=== PATIENT | male | born 1970 | race Caucasian/White ===

== ENCOUNTER 2018-02-10 12:17 | Emergency (ER) ==
[2018-02-10] MEDS ORDERED: GEODON IM STA ×3 (12:23→12:58)
[2018-02-10] MEDS ORDERED: ATIVAN IM STA (12:23)
[2018-02-10 12:50] VITALS: BP 000/00; TEMP 97.8; BMI 33.0
[2018-02-10] MEDS ORDERED: HALDOL IM STA (12:59)
[2018-02-10] MEDS ORDERED: ATIVAN IVP STA (13:00)
--- NOTE | 2018-02-10 15:07 | CT ---
EXAM: CT of the head without contrast History: Confusion. Comparison: Head CT 08/23/2011 Technique: Multiplanar CT images through the head were obtained without the administration of IV con trast Findings: 2.2 cm new due to tension cyst or polyp within the right maxillary sinus. Mastoid air cells are clear in general. No acute calvarial abnormalities. Intracranially the ventricular and cisternal spaces are normal in size, shape and configuration for a patient of this age. No dominant mass or midline shift. No hydrocephalous. No acute intracranial hemorrhage or abnormal extraaxial fluid collections. Impression: 1. No acute intracranial process. 2. Right maxillary sinus mucous retention cyst or polyp.
--- NOTE | 2018-02-10 19:03 | ED.PDOC ---
General Stated Complaint: agitated /hallucination Time Seen by Physician: 12:19 Mode of Arrival: Walk-In Information Source: Police Exam Limitations: Clinical condition (confused) Nursing and Triage Documentation Reviewed and Agree: Yes Reviewed sepsis parameters & appropriate labs ordered?: Yes System Inflammatory Response Syndrome: Not Applicable System Inflammatory Response Syndrome: Not Applicable <ANGELITO RINALDI - Last Filed: 02/10/18 19:01> <CORNELIO ALVARADO - Last Filed: 02/11/18 01:57> ED Provider: Dr. CORNELIO ALVARADO Chief Complaint: Behavioral Complaint Sepsis Protocol: For patient's 13 years and over: Temp is 96.8 and below OR 101 and greater Pulse >90 BPM Resp >20/minute Acutely Altered Mental Status Are patient's symptoms suggestive of a new infection, such as: -Pneumonia -Skin, Soft Tissue -Endocarditis -UTI -Bone, Joint Infection -Implantable Device -Acute Abdominal Infection -Wound Infection -Meningitis -Blood Stream Catheter Infection -Unknown Psychological Complaint Exam - Psychiatric Complaint/Exam Patient Complains Of: Present: Other (cigar pack[facility] seeing tanner ) Onset/Duration: today Symptoms Are: Still present Timing: Constant (until medicated) Initial Severity: Severe Current Severity: None Character: Present: Fearful, Anxious, Angry, Frustrated Aggravating: Reports: None (unknown) Associated Signs And Symptoms: Reports: Hostile, Confused, Hallucinating, Paranoid behavior Completed Suicide Risk Factors: Male, Patient Accompanied By: Police Social Withdrawal Present: No (unknown) Social Isolation Present: No (unknown) Prior Suicide Attempt: No (unknown) Injury From Prior Suicide Attempt: No (unknwon) Patient Uncooperative For Exam: No Mood: Present: Hallucinating, Agitated, Anxious Thought Process: Present: Illogical, Flight of ideas Insight: Present: Poor Memory: Impaired Judgement: Impaired Danger To Others: Yes Patient Medically Stable For: Psych evaluation Differential Diagnoses: Acute Psychosis <GENTRYANGELITO - Last Filed: 02/10/18 19:01> Review of Systems - Review Of Systems Constitutional: Reports: No symptoms Eyes: Reports: No symptoms Ears, Nose, Mouth, Throat: Reports: No symptoms Respiratory: Reports: No symptoms Cardiac: Reports: No symptoms GI: Reports: No symptoms : Reports: No symptoms Musculoskeletal: Reports: No symptoms Skin: Reports: No symptoms Neurological: Reports: Anxiety, Cognitive dysfunction Endocrine: Reports: No symptoms Hematologic/Lymphatic: Reports: No symptoms All Other Systems: Reviewed and Negative <ANGELITO RINALDI - Last Filed: 02/10/18 19:01> Past Medical History - Past Medical History Previously Healthy: Yes Endocrine: Reports: Unknown Cardiovascular: Reports: None Respiratory: Reports: None Hematological: Reports: None Gastrointestinal: Reports: None Genitourinary: Reports: None Neuro/Psych: Reports: Anxiety, Depression, Schizophrenia Musculoskeletal: Reports: None Cancer: Reports: None Other Pertinent Past Medical History: JOINT PAINS,ANXIETY,DEPRESSION, SCHIZOPHENIA - Surgical History General Surgical History: Reports: Unknown - Family History Family History: Reports: Hypertension (mother), Other (sister cardiac surgery( Downs'),father age 73"chele causes") - Social History Smoking Status: Never smoker Hx Substance Use: No (marijuana) Alcohol Screening: Occasionally - Immunizations Tetanus Shot up to Date: No <GENTRYANGELITO Last Filed: 02/10/18 19:01> Physical Exam - Physical Exam Appearance: Well-appearing, No pain distress, Well-nourished Eyes: DENIA, EOMI, Conjunctiva clear ENT: Ears normal, Nose normal, Oropharynx normal Respiratory: Airway patent, Breath sounds clear, Breath sounds equal, Respirations nonlabored Cardiovascular: RRR, Pulses normal, No rub, No murmur GI/: Soft, Nontender, No masses, Bowel sounds normal, No Organomegaly Musculoskeletal: Normal strength, ROM intact, No edema, No calf tenderness Skin: Warm, Dry, Normal color Neurological: Sensation intact, Motor intact, Reflexes intact, Cranial nerves intact, Alert, Oriented Psychiatric: Affect appropriate, Mood appropriate <ANGELITO RINALDI - Last Filed: 02/10/18 19:01> Re-Evaluation - Re-Evaluation Time of Re-Evaluation: 01:52 Status: Improved <CORNELIO ALVARADO - Last Filed: 02/11/18 01:57> Critical Care Note - Critical Care Note Total Time (mins): 0 <ANGELITO RINALDI - Last Filed: 02/10/18 19:01> - Critical Care Note Total Time (mins): 30 <CORNELIO ALVARADO - Last Filed: 02/11/18 01:57> Course - Course Hematology/Chemistry: 02/10/18 12:41 02/10/18 12:41 <ANGELITO RINALDI - Last Filed: 02/10/18 19:01> - Course Hematology/Chemistry: 02/10/18 22:43 02/10/18 22:43 <CORNELIO ALVARADO - Last Filed: 02/11/18 01:57> - Course Orders, Labs, Meds: Lab Review 02/10/18 02/10/18 02/10/18 12:41 12:41 22:25 WBC 18.72 H RBC 5.24 Hgb 15.3 Hct 45.0 MCV 85.9 MCH 29.2 MCHC 34.0 RDW Coeff of Angelica 12.9 Plt Count 380 Immature Gran % (Auto) 0.3 Neut % (Auto) 67.2 Lymph % (Auto) 22.2 [place] % (Auto) 9.9 Eos % (Auto) 0.1 Baso % (Auto) 0.3 Immature Gran # (Auto) 0.1 Neut # (Auto) 12.6 H Lymph # (Auto) 4.2 H [place] # (Auto) 1.9 Eos # (Auto) 0.0 Baso # (Auto) 0.1 Sodium 142 Potassium 3.4 L Chloride 104 Carbon Dioxide 18 L Anion Gap 23.4 BUN 15 Creatinine 1.34 H Estimated GFR (MDRD) 57.00 BUN/Creatinine Ratio 11.19 Glucose 150 H Calcium 9.7 Total Bilirubin 1.5 H AST 75 H ALT 37 Alkaline Phosphatase 76 Total Protein 8.0 Albumin 4.3 Globulin 3.7 Albumin/Globulin Ratio 1.16 Urine Color Urine Clarity Urine pH Ur Specific [place] Urine Protein Urine Glucose (UA) Urine Ketones Urine Blood Urine Nitrite Urine Bilirubin Urine Urobilinogen Ur Leukocyte Esterase Urine Microscopic RBC Urine Microscopic WBC Ur Squamous Epith Cells Hyaline Casts Urine Mucus Salicylate Level mg/dL < 5.0 Urine Opiates Screen Negative Ur Oxycodone Screen Negative Urine Methadone Screen Negative Ur Propoxyphene Screen Negative Acetaminophen < 3 L Ur Barbiturates Screen Negative U Tricyclic Antidepress Negative Ur Phencyclidine Scrn Negative Ur Amphetamine Screen Negative U Methamphetamines Scrn Negative U Benzodiazepines Scrn Positive Urine Cocaine Screen Negative U Cannabinoids Screen Positive Plasma/Serum Alcohol < 10.0 02/10/18 02/10/18 02/10/18 22:25 22:43 22:43 WBC 12.81 H D RBC 4.57 L Hgb 13.5 L Hct 39.3 L MCV 86.0 MCH 29.5 MCHC 34.4 RDW Coeff of Angelica 12.9 Plt Count 250 D Immature Gran % (Auto) 0.4 Neut % (Auto) 62.6 Lymph % (Auto) 24.5 [place] % (Auto) 12.1 H Eos % (Auto) 0.2 Baso % (Auto) 0.2 Immature Gran # (Auto) 0.1 Neut # (Auto) 8.0 H Lymph # (Auto) 3.1 [place] # (Auto) 1.6 Eos # (Auto) 0.0 Baso # (Auto) 0.0 Sodium 140 Potassium 3.5 Chloride 112 H Carbon Dioxide 17 L Anion Gap 14.5 BUN 15 Creatinine 0.89 Estimated GFR (MDRD) 92.00 BUN/Creatinine Ratio 16.85 Glucose 108 H Calcium 7.9 L Total Bilirubin 1.0 AST 65 H ALT 29 Alkaline Phosphatase 58 Total Protein 6.4 Albumin 3.3 L Globulin 3.1 Albumin/Globulin Ratio 1.06 Urine Color Yellow Urine Clarity Clear Urine pH 5.5 Ur Specific [place] >=1.030 Urine Protein 1+ Urine Glucose (UA) Negative Urine Ketones Trace Urine Blood Negative Urine Nitrite Negative Urine Bilirubin 1+ Urine Urobilinogen 1.0 Ur Leukocyte Esterase Negative Urine Microscopic RBC 0-2 Urine Microscopic WBC 0-2 Ur Squamous Epith Cells Not Reportable Hyaline Casts 5-10 Urine Mucus 1+ Salicylate Level mg/dL Urine Opiates Screen Ur Oxycodone Screen Urine Methadone Screen Ur Propoxyphene Screen Acetaminophen Ur Barbiturates Screen U Tricyclic Antidepress Ur Phencyclidine Scrn Ur Amphetamine Screen U Methamphetamines Scrn U Benzodiazepines Scrn Urine Cocaine Screen U Cannabinoids Screen Plasma/Serum Alcohol Orders Category Date Time Status EKG-(ED ONLY) Stat CARDIO 02/10/18 12:50 Completed RESTRAINT CARE Q30MIN Q30MIN CARE 02/10/18 13:03 Active ED [place] APPLIED ONCE EMERGENCY 02/10/18 12:50 Active Restraints [ED RESTRAINTS] .ONCE EMERGENCY 02/10/18 12:47 Active Restraints [ED RESTRAINTS] .ONCE EMERGENCY 02/10/18 22:36 Active ACETAMINOPHEN Stat LAB 02/10/18 12:41 Completed BLOOD ALCOHOL Stat LAB 02/10/18 12:41 Completed CBC W/ AUTO DIFF Stat LAB 02/10/18 12:41 Completed CBC W/ AUTO DIFF Stat LAB 02/10/18 22:43 Completed CMP [COMPREHENSIVE METABOLIC PANEL] Stat LAB 02/10/18 22:43 Completed COMPREHENSIVE METABOLIC PANEL Stat LAB 02/10/18 12:41 Completed DRUG SCREEN, URINE, RAPID Stat LAB 02/10/18 22:25 Completed SALICYLATE Stat LAB 02/10/18 12:41 Completed URINALYSIS C & S IF INDICATED Stat LAB 02/10/18 22:25 Completed Haloperidol Lactate Inj [Haldol] MEDS 02/10/18 12:59 Discontinued 5 mg IM ONCE STA Lorazepam [Ativan] MEDS 02/10/18 13:00 Discontinued 2 mg IVP ONCE STA Sodium Chloride 0.9% [Sodium Chloride] 1,000 ml MEDS 02/10/18 19:43 Discontinued IV BOLUS Sodium Chloride 0.9% [Sodium Chloride] 1,000 ml MEDS 02/10/18 19:44 Discontinued IV BOLUS Sodium Chloride 0.9% [Sodium Chloride] 1,000 ml MEDS 02/10/18 21:08 Discontinued IV BOLUS Ziprasidone Mesylate [Geodon] MEDS 02/10/18 12:49 Discontinued 10 mg IM ONCE STA Ziprasidone Mesylate [Geodon] MEDS 02/10/18 12:58 Discontinued 10 mg IM ONCE STA Ziprasidone Mesylate [Geodon] MEDS 02/11/18 01:09 Discontinued 5 mg IM ONCE STA CT HEAD W/O CONTRAST Stat RADS 02/10/18 14:13 Completed Medications Discontinued Medications Generic Name Dose Route Start Last Admin Trade Name Freq PRN Reason Stop Dose Admin Haloperidol Lactate 5 mg 02/10/18 12:59 02/10/18 13:08 Haldol IM 02/10/18 13:00 5 mg ONCE STA Administration Sodium Chloride 1,000 mls @ 1,000 mls/hr 02/10/18 19:43 02/10/18 19:45 Sodium Chloride IV 02/10/18 20:42 1,000 mls/hr BOLUS STA Administration Sodium Chloride 1,000 mls @ 1,000 mls/hr 02/10/18 19:44 02/10/18 20:40 Sodium Chloride IV 02/10/18 20:43 1,000 mls/hr BOLUS STA Administration Sodium Chloride 1,000 mls @ 1,000 mls/hr 02/10/18 21:08 02/10/18 21:27 Sodium Chloride IV 02/10/18 22:07 1,000 mls/hr BOLUS STA Administration Lorazepam 2 mg 02/10/18 13:00 02/10/18 13:05 Ativan IVP 02/10/18 13:01 2 mg ONCE STA Administration Ziprasidone 10 mg 02/10/18 12:49 02/10/18 13:00 Geodon IM 02/10/18 12:50 10 mg ONCE STA Administration Ziprasidone 10 mg 02/10/18 12:58 02/10/18 13:15 Geodon IM 02/10/18 12:59 10 mg ONCE STA Administration Ziprasidone 5 mg 02/11/18 01:09 02/11/18 01:29 Geodon IM 02/11/18 01:10 5 mg ONCE STA Administration Vital Signs: Temp Pulse Resp BP Pulse Ox 02/10/18 12:18 97.8 F 166 H 22 000/00 L 100 Departure - Departure Pt referred to PMD for follow-up: Yes IPMP verified?: No <ANGELITO RINALDI - Last Filed: 02/10/18 19:01> - Departure Time of Disposition: 01:53 <CORNELIO ALVARADO - Last Filed: 02/11/18 01:57> - Departure Disposition: HOME SELF-CARE Discharge Problem: Problem behavior, Acute psychosis Instructions: Psychotic Disorder (ED) Condition: Stable Additional Instructions: Mental health came and evaluated patient, they are planing admission to a facility, but said we can transfer patient to Skilled Nursing. and she will keep checking to place patient at facility. We can give Ativan 1 mg po 4-6 hrs mean while. Allergies/Adverse Reactions: Allergies No Known Allergies Allergy (Verified 06/28/15 18:17) Home Medications: Ambulatory Orders 1 [Unobtainable] 02/10/18
[2018-02-10] MEDS ORDERED: SODIUM CHLORIDE 1,000 ML IV STA ×3 (19:43→21:08)
[2018-02-11] MEDS ORDERED: GEODON IM STA (01:09)
== END 2018-02-11 01:56 ==
LOC: ED 12:17
DX: F23 Brief psychotic disorder (principal); R44.3 Hallucinations, unspecified; R45.1 Restlessness and agitation; R41.0 Disorientation, unspecified; F41.9 Anxiety disorder, unspecified; F20.9 Schizophrenia, unspecified; F32.9 Major depressive disorder, single episode, unspecified
CPT/HCPCS: 36415; 80053; 80306; 80307; 81001; 85025; 93005; 93010; 96360; 96361; 96372; 96374; 96375; 99285

== ENCOUNTER 2018-02-21 10:00 | Emergency (ER) ==
[2018-02-21 10:11] VITALS: BP 133/92; TEMP 98.1; BMI 26.4
--- NOTE | 2018-02-21 15:21 | ED.PDOC ---
General ED Provider: Dr. ANGELITO RINALDI Chief Complaint: Behavioral Complaint Stated Complaint: BEHAVIORAL ISSUES Time Seen by Physician: 10:10 (PT EXPRESSED HE WOULD HURT PEOPLEIF HE COULD ) Mode of Arrival: Walk-In Information Source: Patient, Police Exam Limitations: No limitations Nursing and Triage Documentation Reviewed and Agree: Yes Reviewed sepsis parameters & appropriate labs ordered?: Yes System Inflammatory Response Syndrome: Not Applicable Sepsis Protocol: For patient's 13 years and over: Temp is 96.8 and below OR 101 and greater Pulse >90 BPM Resp >20/minute Acutely Altered Mental Status Are patient's symptoms suggestive of a new infection, such as: -Pneumonia -Skin, Soft Tissue -Endocarditis -UTI -Bone, Joint Infection -Implantable Device -Acute Abdominal Infection -Wound Infection -Meningitis -Blood Stream Catheter Infection -Unknown System Inflammatory Response Syndrome: Not Applicable Psychological Complaint Exam - Psychiatric Complaint/Exam Patient Complains Of: Present: Other (AGITATED PT RETURNS TO ER STATING GAURDS WERE POOPING IN HIS FOOD TRAY AND WANTING DRINK HIS URINE ) Onset/Duration: ALMOST 10 DAYS , HE WAS SEEN FOR SIMILAR ISSUE OF PARANOIA Symptoms Are: Still present Timing: Constant Episodes Lasting: Weeks Initial Severity: Severe Current Severity: Severe Character: Present: Fearful, Anxious, Angry, Frustrated Associated Signs And Symptoms: Reports: Hostile, Hallucinating, Paranoid behavior, Sleep disturbance Related History: Reports: Homicidal thoughts, Homicidal gestures. Denies: Suicidal thoughts, Suicidal plan, Suicidal gestures, Homicidal plan Completed Suicide Risk Factors: Male Patient Accompanied By: Police Patient In Custody Of Police: Yes Social Withdrawal Present: Yes Social Isolation Present: Yes Related Surgical History: Reports: None Patient Uncooperative For Exam: Yes Mood: Present: Agitated Appearance: Present: Clean Insight: Present: Poor Memory: Impaired Judgement: Impaired Danger To Others: Yes Patient Medically Stable For: Psych evaluation Differential Diagnoses: Homicidal Ideation Review of Systems - Review Of Systems Constitutional: Reports: No symptoms Eyes: Reports: No symptoms Ears, Nose, Mouth, Throat: Reports: No symptoms Respiratory: Reports: No symptoms Cardiac: Reports: No symptoms GI: Reports: No symptoms : Reports: No symptoms Musculoskeletal: Reports: No symptoms Skin: Reports: No symptoms Neurological: Reports: Cognitive dysfunction Endocrine: Reports: No symptoms Hematologic/Lymphatic: Reports: No symptoms All Other Systems: Reviewed and Negative Past Medical History - Past Medical History Previously Healthy: Yes Endocrine: Reports: Unknown Cardiovascular: Reports: None Respiratory: Reports: None Hematological: Reports: None Gastrointestinal: Reports: None Genitourinary: Reports: None Neuro/Psych: Reports: Anxiety, Depression, Schizophrenia Musculoskeletal: Reports: None Cancer: Reports: None Other Pertinent Past Medical History: JOINT PAINS,ANXIETY,DEPRESSION, SCHIZOPHENIA - Surgical History General Surgical History: Reports: Unknown - Family History Family History: Reports: Hypertension (mother), Other (sister cardiac surgery( [place]'),father age 73"chele causes") - Social History Smoking Status: Never smoker Hx Substance Use: Yes Alcohol Screening: Occasionally Physical Exam - Physical Exam Appearance: Well-appearing, No pain distress, Well-nourished Eyes: DENIA, EOMI, Conjunctiva clear ENT: Ears normal, Nose normal, Oropharynx normal Respiratory: Airway patent, Breath sounds clear, Breath sounds equal, Respirations nonlabored Cardiovascular: RRR, Pulses normal, No rub, No murmur GI/: Soft, Nontender, No masses, Bowel sounds normal, No Organomegaly Musculoskeletal: Normal strength, ROM intact, No edema, No calf tenderness Skin: Warm, Dry, Normal color Neurological: Sensation intact, Motor intact, Reflexes intact, Cranial nerves intact, Alert, Oriented Psychiatric: Affect appropriate, Mood appropriate Critical Care Note - Critical Care Note Total Time (mins): 0 Course - Course Hematology/Chemistry: 02/21/18 10:15 02/21/18 10:15 Orders, Labs, Meds: Lab Review 02/21/18 02/21/18 02/21/18 10:15 10:15 10:25 WBC 7.98 RBC 5.05 Hgb 14.7 Hct 43.2 MCV 85.5 MCH 29.1 MCHC 34.0 RDW Coeff of Angelica 13.2 Plt Count 267 Immature Gran % (Auto) 0.1 Neut % (Auto) 54.6 Lymph % (Auto) 32.6 [place] % (Auto) 10.4 H Eos % (Auto) 1.9 Baso % (Auto) 0.4 Immature Gran # (Auto) 0.0 Neut # (Auto) 4.4 Lymph # (Auto) 2.6 [place] # (Auto) 0.8 Eos # (Auto) 0.2 Baso # (Auto) 0.0 Sodium 141 Potassium 3.7 Chloride 109 H Carbon Dioxide 24 Anion Gap 11.7 BUN 9 Creatinine 0.80 Estimated GFR (MDRD) 104.00 BUN/Creatinine Ratio 11.25 Glucose 100 Calcium 9.0 Total Bilirubin 0.6 AST 33 ALT 47 Alkaline Phosphatase 73 Total Protein 6.9 Albumin 3.5 Globulin 3.4 Albumin/Globulin Ratio 1.03 TSH 0.808 Urine Color Urine Clarity Urine pH Ur Specific [place] Urine Protein Urine Glucose (UA) Urine Ketones Urine Blood Urine Nitrite Urine Bilirubin Urine Urobilinogen Ur Leukocyte Esterase Salicylate Level mg/dL < 5.0 Urine Opiates Screen Ur Oxycodone Screen Urine Methadone Screen Ur Propoxyphene Screen Acetaminophen < 3 L Ur Barbiturates Screen U Tricyclic Antidepress Ur Phencyclidine Scrn Ur Amphetamine Screen U Methamphetamines Scrn U Benzodiazepines Scrn Urine Cocaine Screen U Cannabinoids Screen Plasma/Serum Alcohol < 10.0 02/21/18 02/21/18 10:54 11:30 WBC RBC Hgb Hct MCV MCH MCHC RDW Coeff of Angelica Plt Count Immature Gran % (Auto) Neut % (Auto) Lymph % (Auto) [place] % (Auto) Eos % (Auto) Baso % (Auto) Immature Gran # (Auto) Neut # (Auto) Lymph # (Auto) [place] # (Auto) Eos # (Auto) Baso # (Auto) Sodium Potassium Chloride Carbon Dioxide Anion Gap BUN Creatinine Estimated GFR (MDRD) BUN/Creatinine Ratio Glucose Calcium Total Bilirubin AST ALT Alkaline Phosphatase Total Protein Albumin Globulin Albumin/Globulin Ratio TSH Urine Color Yellow Urine Clarity Clear Urine pH 7.5 Ur Specific [place] 1.015 Urine Protein Negative Urine Glucose (UA) Negative Urine Ketones Negative Urine Blood Negative Urine Nitrite Negative Urine Bilirubin Negative Urine Urobilinogen 0.2 Ur Leukocyte Esterase Negative Salicylate Level mg/dL Urine Opiates Screen Negative Ur Oxycodone Screen Negative Urine Methadone Screen Negative Ur Propoxyphene Screen Negative Acetaminophen Ur Barbiturates Screen Negative U Tricyclic Antidepress Negative Ur Phencyclidine Scrn Negative Ur Amphetamine Screen Negative U Methamphetamines Scrn Negative U Benzodiazepines Scrn Negative Urine Cocaine Screen Negative U Cannabinoids Screen Positive Plasma/Serum Alcohol Orders Category Date Time Status EKG-(ED ONLY) Stat CARDIO 02/21/18 10:04 Completed ED CHIEF OF PLANNING APPLIED ONCE EMERGENCY 02/21/18 10:04 Active ACETAMINOPHEN Stat LAB 02/21/18 10:15 Completed BLOOD ALCOHOL Stat LAB 02/21/18 10:15 Completed CBC W/ AUTO DIFF Stat LAB 02/21/18 10:15 Completed COMPREHENSIVE METABOLIC PANEL Stat LAB 02/21/18 10:15 Completed DRUG SCREEN, URINE, RAPID Stat LAB 02/21/18 10:54 Completed SALICYLATE Stat LAB 02/21/18 10:15 Completed TSH [THYROID STIMULATING HORMONE] Stat LAB 02/21/18 10:25 Completed URINALYSIS C & S IF INDICATED Stat LAB 02/21/18 11:30 Completed Vital Signs: Temp Pulse Resp BP Pulse Ox 02/21/18 10:04 98.1 F 78 16 133/92 H 98 Departure - Departure Time of Disposition: 16:00 Disposition: [facility] SHORT-TRM [facility]P Discharge Problem: Problem behavior, Paranoia (psychosis) Instructions: Paranoid Personality Disorder (ED), Psychotic Disorder (ED) Condition: Good Pt referred to PMD for follow-up: Yes IPMP verified?: No Allergies/Adverse Reactions: Allergies No Known Allergies Allergy (Verified 02/21/18 10:14) Home Medications: Ambulatory Orders 1 [No Reported Medications] 02/21/18 Disposition Discussed With: Patient
== END 2018-02-21 15:38 | disposition short-term general hospital (02) ==
LOC: ED 10:00
DX: F22 Delusional disorders (principal); F91.9 Conduct disorder, unspecified
CPT/HCPCS: 36415; 80053; 80306; 80307; 81001; 84443; 85025; 93005; 93010; 99284

== ENCOUNTER 2019-02-24 09:17 | Emergency (ER) ==
[2019-02-24 09:24] VITALS: BMI 30.5
--- NOTE | 2019-02-24 09:45 | ED.PDOC ---
General Stated Complaint: Chest tightness;. Suicidal thoughts. Wishing to see mental health as his fear he will carry out his plan(will not confide plan with examiner) Time Seen by Physician: 09:35 Mode of Arrival: Walk-In Information Source: Patient, Family Exam Limitations: No limitations Nursing and Triage Documentation Reviewed and Agree: Yes Does patient meet sepsis criteria?: No System Inflammatory Response Syndrome: Not Applicable <GÓMEZ BERNARDO - Last Filed: 02/24/19 19:17> <MONI RAY - Last Filed: 02/25/19 03:36> ED Provider: Dr. MONI RAY Chief Complaint: Chest Pain Sepsis Protocol: For patient's 13 years and over: Temp is 96.8 and below OR 101 and greater Pulse >90 BPM Resp >20/minute Acutely Altered Mental Status Are patient's symptoms suggestive of a new infection, such as: -Pneumonia -Skin, Soft Tissue -Endocarditis -UTI -Bone, Joint Infection -Implantable Device -Acute Abdominal Infection -Wound Infection -Meningitis -Blood Stream Catheter Infection -Unknown Review of Systems - Review Of Systems Constitutional: Reports: No symptoms Eyes: Reports: No symptoms Ears, Nose, Mouth, Throat: Reports: No symptoms Respiratory: Reports: No symptoms Cardiac: Reports: Chest pain GI: Reports: No symptoms : Reports: No symptoms Musculoskeletal: Reports: No symptoms Skin: Reports: No symptoms Neurological: Reports: Anxiety, Depressed, Emotional problems Endocrine: Reports: No symptoms Hematologic/Lymphatic: Reports: No symptoms All Other Systems: Reviewed and Negative <MONI RAY - Last Filed: 02/25/19 03:36> Past Medical History - Past Medical History Previously Healthy: Yes Endocrine: Reports: Unknown Cardiovascular: Reports: None Respiratory: Reports: None Hematological: Reports: None Gastrointestinal: Reports: None Genitourinary: Reports: None Neuro/Psych: Reports: Anxiety, Depression, Schizophrenia Musculoskeletal: Reports: None Cancer: Reports: None Other Pertinent Past Medical History: JOINT PAINS,ANXIETY,DEPRESSION, SCHIZOPHENIA - Surgical History General Surgical History: Reports: Unknown - Family History Family History: Reports: Hypertension (mother), Other (sister cardiac surgery( Downs'),father age 73"chele causes") - Social History Smoking Status: Current every day smoker Hx Substance Use: No Alcohol Screening: Occasionally <GÓMEZ BERNARDO - Last Filed: 02/24/19 19:17> Physical Exam - Physical Exam Appearance: Ill-appearing Ill-appearing: Mild Eyes: DENIA, EOMI, Conjunctiva clear Neck: Supple Respiratory: Airway patent, Breath sounds clear, Breath sounds equal, Respirations nonlabored Cardiovascular: Pulses normal, No rub, No murmur, Tachycardia Skin: Warm Neurological: Sensation intact, Motor intact, Reflexes intact, Cranial nerves intact, Alert, Oriented Psychiatric: Anxious, Depressed <MONI RAY - Last Filed: 02/25/19 03:36> Critical Care Note - Critical Care Note Total Time (mins): 0 <MONI RAY - Last Filed: 02/25/19 03:36> Course - Course Hematology/Chemistry: 02/24/19 10:10 02/24/19 10:10 <GÓMEZ BERNARDO - Last Filed: 02/24/19 19:17> - Course Hematology/Chemistry: 02/24/19 10:10 02/24/19 10:10 <MONI RAY - Last Filed: 02/25/19 03:36> - Course Orders, Labs, Meds: Lab Review 02/24/19 02/24/19 02/24/19 10:05 10:10 10:10 WBC 12.15 H RBC 5.71 Hgb 16.8 Hct 50.1 MCV 87.7 MCH 29.4 MCHC 33.5 RDW Coeff of Angelica 13.9 Plt Count 272 Immature Gran % (Auto) 0.3 Neut % (Auto) 78.4 Lymph % (Auto) 13.9 [place] % (Auto) 6.6 Eos % (Auto) 0.6 Baso % (Auto) 0.2 Immature Gran # (Auto) 0.0 Neut # (Auto) 9.5 H Lymph # (Auto) 1.7 [place] # (Auto) 0.8 Eos # (Auto) 0.1 Baso # (Auto) 0.0 Sodium 140.3 Potassium 4.10 Chloride 104.5 Carbon Dioxide 27.3 Anion Gap 12.60 BUN 9.1 Creatinine 0.82 Estimated GFR (MDRD) 100.00 BUN/Creatinine Ratio 11.09 Glucose 107.2 H Calcium 9.17 Total Bilirubin 0.72 AST 31.5 ALT 22.3 Alkaline Phosphatase 78.4 Troponin I < 0.012 Total Protein 7.61 Albumin 4.48 Globulin 3.13 Albumin/Globulin Ratio 1.43 TSH 1.280 Urine Color Yellow Urine Clarity Clear Urine pH 7.0 Ur Specific [place] 1.010 Urine Protein Negative Urine Glucose (UA) Negative Urine Ketones Negative Urine Blood Negative Urine Nitrite Negative Urine Bilirubin Negative Urine Urobilinogen 0.2 Ur Leukocyte Esterase Negative Salicylate Level mg/dL < 1.00 Urine Opiates Screen Ur Oxycodone Screen Urine Methadone Screen Ur Propoxyphene Screen Acetaminophen < 10.0 L Ur Barbiturates Screen U Tricyclic Antidepress Ur Phencyclidine Scrn Ur Amphetamine Screen U Methamphetamines Scrn U Benzodiazepines Scrn Urine Cocaine Screen U Cannabinoids Screen Plasma/Serum Alcohol < 10.0 02/24/19 10:10 WBC RBC Hgb Hct MCV MCH MCHC RDW Coeff of Angelica Plt Count Immature Gran % (Auto) Neut % (Auto) Lymph % (Auto) [place] % (Auto) Eos % (Auto) Baso % (Auto) Immature Gran # (Auto) Neut # (Auto) Lymph # (Auto) [place] # (Auto) Eos # (Auto) Baso # (Auto) Sodium Potassium Chloride Carbon Dioxide Anion Gap BUN Creatinine Estimated GFR (MDRD) BUN/Creatinine Ratio Glucose Calcium Total Bilirubin AST ALT Alkaline Phosphatase Troponin I Total Protein Albumin Globulin Albumin/Globulin Ratio TSH Urine Color Urine Clarity Urine pH Ur Specific [place] Urine Protein Urine Glucose (UA) Urine Ketones Urine Blood Urine Nitrite Urine Bilirubin Urine Urobilinogen Ur Leukocyte Esterase Salicylate Level mg/dL Urine Opiates Screen Negative Ur Oxycodone Screen Negative Urine Methadone Screen Negative Ur Propoxyphene Screen Negative Acetaminophen Ur Barbiturates Screen Negative U Tricyclic Antidepress Negative Ur Phencyclidine Scrn Negative Ur Amphetamine Screen Negative U Methamphetamines Scrn Negative U Benzodiazepines Scrn Positive Urine Cocaine Screen Negative U Cannabinoids Screen Positive Plasma/Serum Alcohol Orders Category Date Time Status EKG-(ED ONLY) Stat CARDIO 02/24/19 10:02 Completed ED RUG DYER HELPER APPLIED ONCE EMERGENCY 02/24/19 10:02 Active ACETAMINOPHEN Stat LAB 02/24/19 10:10 Completed BLOOD ALCOHOL Stat LAB 02/24/19 10:10 Completed CBC W/ AUTO DIFF Stat LAB 02/24/19 10:10 Completed COMPREHENSIVE METABOLIC PANEL Stat LAB 02/24/19 10:10 Completed DRUG SCREEN, URINE, RAPID Stat LAB 02/24/19 10:10 Completed SALICYLATE Stat LAB 02/24/19 10:10 Completed THYROID STIMULATING HORMONE Stat LAB 02/24/19 10:10 Completed TROPONIN I Stat LAB 02/24/19 10:10 Completed URINALYSIS C & S IF INDICATED Stat LAB 02/24/19 10:05 Completed Lorazepam [Ativan] MEDS 02/24/19 14:29 Discontinued 1 mg PO ONCE STA Lorazepam [Ativan] MEDS 02/24/19 20:15 Discontinued 1 mg PO ONCE STA Medications Discontinued Medications Generic Name Dose Route Start Last Admin Trade Name Gabriela PRN Reason Stop Dose Admin Lorazepam 1 mg 02/24/19 14:29 02/24/19 14:46 Ativan PO 02/24/19 14:30 1 mg ONCE STA Administration Lorazepam 1 mg 02/24/19 20:15 02/24/19 20:26 Ativan PO 02/24/19 20:16 1 mg ONCE STA Administration Vital Signs: Temp Pulse Resp BP Pulse Ox 02/24/19 16:37 97.9 F 85 16 110/75 96 02/24/19 09:17 97.2 F L 108 H 20 136/99 H 96 Departure <GÓMEZ BERNARDO - Last Filed: 02/24/19 19:17> - Departure Time of Disposition: 03:33 Pt referred to PMD for follow-up: Yes IPMP verified?: No Pt. Stabilized Within Hospital's Capabilities/Transferred To: [facility] Transfer Form Completed: Yes Disposition Discussed With: Patient <MONI RAY - Last Filed: 02/25/19 03:36> - Departure Disposition: [facility]ORT-TRM [facility]P Discharge Problem: Suicidal ideations Condition: Fair Allergies/Adverse Reactions: Allergies No Known Allergies Allergy (Verified 02/24/19 09:24) Home Medications: Ambulatory Orders Lorazepam 1 mg PO TID 02/24/19 Olanzapine [Zyprexa] 10 mg PO BID 02/24/19
[2019-02-24] MEDS ORDERED: ATIVAN PO STA ×2 (14:29→20:15)
[2019-02-24 16:37] VITALS: BP 110/75; TEMP 97.9
== END 2019-02-25 05:15 | disposition short-term general hospital (02) ==
LOC: ED 09:17
DX: R45.851 Suicidal ideations (principal); R07.89 Other chest pain; F17.210 Nicotine dependence, cigarettes, uncomplicated
CPT/HCPCS: 36415; 80053; 80306; 80307; 81001; 84443; 84484; 85025; 93005; 93010; 99285